=== PATIENT | female | born 1995 | race Caucasian/White ===

== ENCOUNTER 2016-05-26 19:00 | Emergency (ER) | payer OTHER ==
--- NOTE | 2016-05-26 21:00 | ED ---
Head Injury - HPI Summary HPI Summary: Pt came to ED for evaluation of head injury which occurred 8 hours ago. Pt reports that water bottle fell onto back of her head around 1200 today and since she has been having symptoms dizziness, pressure in head, 'unclear' and decreased appetite. Patient wanting to make sure she does not have a concussion. Denies N/V. Endorses GARCIA, but slight and only feels it intermittently. - History Of Current Complaint Chief Complaint: EDHeadInjury Stated Complaint: HEAD INJURY Time Seen by Provider: 05/26/16 20:07 Hx Obtained From: Patient Mechanism Of Injury: Blunt Trauma Onset/Duration: Started Hours Ago - 8 hours ago Onset of Pain: Immediate Severity Currently: Mild Severity Initially: Mild Pain Intensity: 0 Pain Scale Used: 0-10 Numeric Location of Head Injury: Occipital Character: Dull Aggravating Factor(s): Movement Alleviating Factor(s): Rest, Ice Associated Signs And Symptoms: Confusion - feeling "off" - Allergies/Home Medications Allergies/Adverse Reactions: Allergies Allergy/AdvReac Type Severity Reaction Status Date / Time No Known Allergies Allergy Verified 05/26/16 19:06 PMH/Surg Hx/FS Hx/Imm Hx Previously Healthy: Yes Infectious Disease History: No Infectious Disease History: Denies: Traveled Outside the [place] in Last 30 Days - Social History Occupation: Unemployed Lives: Alone Alcohol Use: None Hx Substance Use: No Substance Use Type: Reports: None Hx Tobacco Use: No Do You Chew or Dip Tobacco: No Have You Chewed or Dipped Tobacco in the LAST YEAR: No Review of Systems Constitutional: Negative Eyes: Negative ENT: Negative Cardiovascular: Negative Respiratory: Negative Gastrointestinal: Negative Positive: no symptoms reported, see HPI Positive: Other - slight area of swelling over posterior scalp, no ecchymosis Neurological: Negative Psychological: Normal All Other Systems Reviewed And Are Negative: Yes Physical Exam Triage Information Reviewed: Yes Vital Signs On Initial Exam: Initial Vitals Temp Pulse Resp BP Pulse Ox 99.0 F 86 18 98/66 100 05/26/16 19:07 05/26/16 19:07 05/26/16 19:07 05/26/16 19:07 05/26/16 19:07 Vital Signs Reviewed: Yes Appearance: Positive: Well-Appearing, No Pain Distress, Well-Nourished Skin: Positive: Warm, Skin Color Reflects Adequate Perfusion, Other - slight area of swelling over posterior scalp, no ecchymosis Head/Face: Positive: Normal Head/Face Inspection Eyes: Positive: EOMI, RAJ ENT: Positive: Pharynx normal, TMs normal Neck: Positive: Supple, Nontender, No Lymphadenopathy Respiratory/Lung Sounds: Positive: Clear to Auscultation, Breath Sounds Present Cardiovascular: Positive: Normal, RRR Musculoskeletal: Positive: Normal, Strength/ROM Intact Neurological: Positive: Normal, Sensory/Motor Intact, Alert, Oriented to Person Place, Time, CN Intact II-III, Reflexes Intact, Normal Gait, Speech Normal, Other - romberg negative, pronatro drift negative Psychiatric: Positive: Normal AVPU Assessment: Alert - Humphrey Coma Scale Best Eye Response: 4 - Spontaneous Best Motor Response: 6 - Obeys Commands Best Verbal Response: 5 - Oriented Diagnostics - Vital Signs Vital Signs Temp Pulse Resp BP Pulse Ox 05/26/16 19:07 99.0 F 86 18 98/66 100 - Laboratory Lab Statement: Any lab studies that have been ordered have been reviewed, and results considered in the medical decision making process. Head Injury Course/Dx Course Of Treatment: Patient arrives to ED with concern of concussion. Slight area of swelling over posterior scalp, no ecchymosis. Denies LOC, memory loss or confusion althought states she has felt "off." Educated patient regarding concussive symptoms and supportive care. She is feeling OK on arrival and discharge and incident occurred 8 hours ago. Return precautions given. Provider did not diagnose her with concussion, but gave her information. - Diagnoses Differential Diagnosis/HQI/PQRI: Cerebral Contusion, Contusion, Hematoma, Intracranial Bleed Provider Diagnoses: Head injury Discharge - Discharge Plan Condition: Stable Disposition: HOME Patient Education Materials: Concussion (ED), Head Injury (ED) Referrals: [facility] RODRICK Carbajal [Primary Care Provider] - Additional Instructions: I have not diagnosed you with a concussion, but wanted to give you information on it. Take tylenol as needed for discomfort. Come back to ED if you develop symptoms of lethargy, nausea, vomiting, worsening GARCIA, confusion, memory loss or blackouts. Images - Images Head: 1 - slight swelling with no ecchymosis
== END 2016-05-26 21:00 | disposition home or self-care (01) ==
LOC: ED 19:00
DX: S09.90XA Unspecified injury of head, initial encounter (principal); W20.8XXA Other cause of strike by thrown, projected or falling object, initial encounter; Y93.9 Activity, unspecified; Y92.9 Unspecified place or not applicable; R60.0 Localized edema
CPT/HCPCS: 99281